=== PATIENT | male | born 1940 | race Caucasian/White ===

== ENCOUNTER → 2018-06-11 | Outpatient (CLI) | payer MEDICARE, OTHER ==
[~2018-06-11] MED LIST: ACET-1600 PO; ALBU18HF INH; ALLO100T30 PO; ASPI-621 PO; ATOR10TA9 PO; BUDE10.2 INH; BUME2TAB PO; CARI350T PO; CARI350T14 PO; CHOL100011 PO; DIAZ5TAB4 PO; DOCU-131 PO; DOXY100C2 PO; EPLE50TA3 PO; FERR325T18 PO; FISH1CAP OP; FLAX1000 PO; FLUN25SP NAS; HYDR-3241 PO; ISOS30TA PO; LORA10CA PO; LORA10TA62 PO; MAGN300C PO; METH750T87 PO; METO50TA82 PO; METR55GE2 TP; MORP30TA3 PO; MULT-717 PO; OMEP40CA3 PO; POTA10TA11 PO; POTA20TA89 PO; SODI75SP NS; TICA90TA PO; UBID200C7 PO; VIT1TABL32 PO; WARF7.5T46 PO; ZOLP-413 PO; [UNRECOGNIZED DRUG - CODE] TP
== END | disposition home or self-care (01) ==
LOC: CVU 14:37
PROVIDERS: ATTEND Internal Medicine Cardiovascular Disease
DX: I87.2 Venous insufficiency (chronic) (peripheral) (principal); R60.0 Localized edema; I25.10 Atherosclerotic heart disease of native coronary artery without angina pectoris; I10 Essential (primary) hypertension; E78.5 Hyperlipidemia, unspecified
CPT/HCPCS: 93970

== ENCOUNTER → 2019-05-23 | Outpatient (CLI) | payer MEDICARE, OTHER ==
[~2019-05-23] MED LIST changes: -ASPI-621 PO; +ASPI81TA45 PO
== END | disposition home or self-care (01) ==
LOC: CVU 13:23
PROVIDERS: ATTEND Internal Medicine Cardiovascular Disease
DX: I08.2 Rheumatic disorders of both aortic and tricuspid valves (principal); I48.2 Chronic atrial fibrillation; I31.3 Pericardial effusion (noninflammatory); I10 Essential (primary) hypertension; E78.5 Hyperlipidemia, unspecified; Z95.0 Presence of cardiac pacemaker; Z87.891 Personal history of nicotine dependence
CPT/HCPCS: 93306